=== PATIENT | female | born 1985 | race Caucasian/White ===

== ENCOUNTER 2016-07-19 05:50 | Emergency (ER) | payer OTHER ==
[~2016-07-19] VITALS: Ht 157.5 cm; Wt 63.5 kg
[2016-07-19 06:08] VITALS: BP 108/66
--- NOTE | 2016-07-19 06:16 | ED GI/GU/ABDOMINAL COMPLAINT ---
History of Present Illness General Chief Complaint: Nausea, Vomiting, Diarrhea Stated Complaint: VOMITING SINCE 2200 YEST Source: patient Exam Limitations: no limitations Vital Signs & Intake/Output Vital Signs & Intake/Output Vital Signs Date Time Temp Pulse Resp B/P Pulse O2 O2 Flow FiO2 Ox Delivery Rate 07/19 0611 97 Room Air 07/19 0608 97.8 106 18 108/66 98 Room Air Allergies Coded Allergies: No Known Allergies (07/19/16) Reconcile Medications No Known Home Medications Triage Note: PT FROM HOME C/O N/V/D SINCE 2199. PT STATES THAT SINCE LAST NIGHT AT 2200 SHE HAS HAD 10X EPISODES OF N/V/D. PT DENIES ANY NEW OR DIFFERENT FOODS. PT STATES " MY SON HAD THE STOMACH BUG LAST WEEK AND NOW I FEEL IT, MY SON DIDNT HAVE IT BAD" DR CHRISTENSEN IN FOR EVAL Triage Nurses Notes Reviewed? yes ? N Is pt currently ? No HPI: Patient presents for evaluation of sudden onset of nausea vomiting and diarrhea last night at about 2200 hrs. Patient states she's had perhaps as many as 10 episodes of nonbloody vomiting and diarrhea. Her son was ill with similar symptoms last week. She denies any recent travel or suspicious meals. Is also experiencing a moderate to severe cramping abdominal pain in the lower abdominal quadrants. Past History Travel History Traveled to [place] past 21 day No Medical History Any Pertinent Medical History? see below for history Surgical History Surgical History: non-contributory Psychosocial History What is your primary language Japanese Tobacco Use: Never used ETOH Use: denies use Illicit Drug Use: denies illicit drug use Family History Hx Contributory? No Review of Systems Review of Systems Constitutional: Reports: no symptoms. EENTM: Reports: no symptoms. Respiratory: Reports: no symptoms. Cardiovascular: Reports: no symptoms. GI: Reports: see HPI. Genitourinary: Reports: no symptoms. Musculoskeletal: Reports: no symptoms. Skin: Reports: no symptoms. Neurological/Psychological: Reports: no symptoms. Hematologic/Endocrine: Reports: no symptoms. Immunologic/Allergic: Reports: no symptoms. All Other Systems: Reviewed and Negative Physical Exam Physical Exam Gastrointestinal: see below Comments: Gen.: Well-nourished, well-developed, no acute respiratory distress. Head: Normocephalic, atraumatic. Eyes: Normal inspection bilaterally Ears: Normal inspection bilaterally Nose: Normal inspection Throat/mouth : Tacky mucosa Neck: Supple, full range of motion, no goiter Heart: Regular rate and rhythm, no murmurs rubs or gallops Lungs: Clear to auscultation bilaterally with normal air entry Chest: Nontender Back: Normal range of motion Abdomen: Soft, bilateral lower abdominal quadrant tenderness without rebound or guarding nondistended, normal bowel sounds Extremities: Normal range of motion grossly, equal radial pulses, no cyanosis clubbing or edema Neurologic: Cranial nerves grossly intact, speech is clear Skin: warm and dry Psychiatric: Calm, cooperative, no apparent delusions or hallucinations Core Measures ACS in differential dx? No Severe Sepsis Present: No Septic Shock Present: No Progress Differential Diagnosis: gastroenteritis, food poisoning, viral syndrome Plan of Care: Current Medications Sig/Zay Start time Last Medication Dose Stop Time Status Admin Ondansetron HCl 4 MG ONCE ONE 07/19 614 UNVr (Zofran) 07/19 615 Sodium Chloride 1,000 ML BOLUS ONE 07/19 614 UNVr (Normal Saline 0.9%) 07/19 07 Initial ED EKG: none Comments: 07/19/2016 6:42:15 AM RHETT is feeling better and feels capable of returning home at this point. Departure Departure Disposition: HOME OR SELF CARE Condition: Stable Clinical Impression Primary Impression: Gastroenteritis, acute Referrals: UNKNOWN (PCP/Family) Additional Instructions: Zofran as needed for nausea or vomiting. Clear liquid diet including Gatorade and Powerade and advance as tolerated. Follow-up with your primary care physician in one week if not improved. Return if any concerns or sudden worsening. Thank you for choosing the [facility] Emergency Department for your care. It was a pleasure to serve you today. Micah Christensen M.D. [facility] Departure Forms: Customer Survey General Discharge Information Prescriptions: Current Visit Scripts Ondansetron (Zofran Odt) 1 TAB SL Q6P PRN NAUSEA/VOMITING #10 TAB
[2016-07-19] MEDS ORDERED: ZOFRAN ODT4 M1 SL (06:43)
== END 2016-07-19 06:53 ==
LOC: ERH 05:50
DX: K52.9 Noninfective gastroenteritis and colitis, unspecified (principal)
CPT/HCPCS: 96374; J2405

== ENCOUNTER 2017-07-23 09:06 | Emergency (ER) | payer OTHER ==
[~2017-07-23] VITALS: Ht 157.5 cm; Wt 63.5 kg
[~2017-07-23 09:06] MED LIST: ZOFRAN ODT4 M1 SL
[2017-07-23 10:08] LABS: ABSOLUTE BASOPHIL COUNT 0 /CUMM (0.0-0.2); ABSOLUTE EOSINOPHIL COUNT 0.1 /CUMM (0.0-0.7); ABSOLUTE LYMPH COUNT 1.6 /CUMM (1.2-3.4); ABSOLUTE MONOCYTE COUNT 0.6 /CUMM (0.10-0.60); BASOPHIL % 0.6 % (0.0-2.0); EOSINOPHIL % 2.1 % (0-5); GRANULOCYTE % 63.4 % (42.2-75.2); HEMATOCRIT 39.1 % (37-47); MEAN CORPUSCULAR HGB 31.1 PG (27.0-31.0); MEAN CORPUSCULAR HGB CONC 35.2 G/DL (33.0-37.0); MEAN CORPUSCULAR VOLUME 88.4 FL (81.0-99.0); MEAN PLATELET VOLUME 8.4 FL (7.4-10.4); PLATELET COUNT 294 /CUMM (130-400); RBC DISTRIBUTION WIDTH 12.2 % (11.5-14.5); RED BLOOD CELL CT 4.42 /CUMM (4.20-5.40); WHITE BLOOD CELL COUNT 6.3 /CUMM (4.8-10.8)
--- NOTE | 2017-07-23 11:21 | ED GI/GU/ABDOMINAL COMPLAINT ---
History of Present Illness General Chief Complaint: General Adult Stated Complaint: 5 WEEKS PREG, SPOTTING Source: patient Exam Limitations: no limitations Vital Signs & Intake/Output Vital Signs & Intake/Output ED Intake and Output 07/24 0000 07/23 1200 Intake Total 0 Output Total Balance 0 Intake, Oral 0 Patient 140 lb Weight Weight Reported by Patient Measurement Method Allergies Coded Allergies: No Known Allergies (07/19/16) Reconcile Medications Vit No.130/Iron/FA ( Tablet) 27 MG IRON-800 MCG TABLET 1 TAB PO DAILY (Reported) Triage Note: PT STATES SHE IS 5 WEEKS AND STARTED SPOTTING TODAY AFTER SEX. STATES BROWNISH. Triage Nurses Notes Reviewed? yes ? Y Is pt currently ? No Onset: Gradual Duration: hour(s): Timing: single episode today Quality/Severity: mild HPI: 32yo female 5 weeks presents to ED complaining of painless brown vaginal spotting beginning this morning. Patient states that she had vaginal sexual activity this morning. Several hours later she noticed brown discharge on her underwear. Amount of discharge was mild, no heavy bleeding. Patient has no abdominal pain or cramping. Patient has her first appointment with her OB/ [facility]IMNEY REPAIRER in 2 weeks. Her last menstrual period was 06/18/17. Patient reports mild nausea for the past few days without vomiting, she has been tolerating PO. Patient denies back pain, dysuria, urinary frequency, vomiting, diarrhea, fevers , chills. (Nelly Juan) Past History Travel History Traveled to [place] past 21 day No Medical History Any Pertinent Medical History? none Surgical History Surgical History: non-contributory Psychosocial History What is your primary language Belizean Tobacco Use: Never used ETOH Use: denies use Illicit Drug Use: denies illicit drug use Family History Hx Contributory? No (Nelly Juan) Review of Systems Review of Systems Constitutional: Reports: no symptoms. EENTM: Reports: no symptoms. Respiratory: Reports: no symptoms. Cardiovascular: Reports: no symptoms. GI: Reports: see HPI. Genitourinary: Reports: see HPI. Musculoskeletal: Reports: no symptoms. Skin: Reports: no symptoms. Neurological/Psychological: Reports: no symptoms. Hematologic/Endocrine: Reports: no symptoms. Immunologic/Allergic: Reports: no symptoms. All Other Systems: Reviewed and Negative (Nelly Juan) Physical Exam Physical Exam General Appearance: well developed/nourished, no apparent distress, alert, awake Head: atraumatic, normal appearance Eyes: Bilateral: normal appearance. Ears, Nose, Throat, Mouth: hearing grossly normal, moist mucous membrane Neck: normal inspection, supple, full range of motion Respiratory: normal breath sounds, no respiratory distress, lungs clear Cardiovascular: regular rate/rhythm Gastrointestinal: normal bowel sounds, soft, non-tender, no organomegaly Back: normal inspection, normal range of motion Extremities: normal range of motion Neurologic/Psych: awake, alert, oriented x 3 Skin: intact, normal color, warm/dry Core Measures ACS in differential dx? No Sepsis Present: No Sepsis Focused Exam Completed? No (Veronica POSADA,Nelly Larson) Progress Differential Diagnosis: ectopic , intrauterine , PID/ cervicitis, threatened AB, UTI/pyelo Plan of Care: Orders Procedure Date/time Status URINALYSIS 07/23 1120 Complete HUMAN BETA HCG TITRE 07/23 0839 Complete COMPREHENSIVE METABOLIC PANEL 07/23 938 Complete CBC WITHOUT DIFFERENTIAL 07/23 938 Complete TYPE & SCREEN (NOT X-MATCH) 07/23 938 Complete Laboratory Tests 07/23/17 1000: Anion Gap 10, Estimated GFR > 60, BUN/Creatinine Ratio 17.1, Glucose 89, Calcium 9.6, Total Bilirubin 0.5, AST 19, ALT 31, Alkaline Phosphatase 51, Total Protein 7.1, Albumin 4.2, Globulin 2.9, Albumin/Globulin Ratio 1.4, Beta HCG, Quant 99310.0, CBC w Diff NO MAN DIFF REQ, RBC 4.42, MCV 88.4, MCH 31.1 H, MCHC 35.2, RDW 12.2, MPV 8.4, Gran % 63.4, Lymphocytes % 25.0, Monocytes % 8.9, Eosinophils % 2.1, Basophils % 0.6, Absolute Granulocytes 4.0, Absolute Lymphocytes 1.6, Absolute Monocytes 0.6, Absolute Eosinophils 0.1, Absolute Basophils 0, Urine Color YEL, Urine Clarity CLEAR, Urine pH 6.0, Ur Specific [place] <= 1.005, Urine Protein NEG, Urine Ketones NEG, Urine Nitrite NEG, Urine Bilirubin NEG, Urine Urobilinogen 0.2, Ur Leukocyte Esterase NEG, Ur Microscopic EXAM NOT REQUIRED, Urine Hemoglobin NEG, Urine Glucose NEG Patient's hCG titer is in normal range relating to her dates. She has no abdominal pain or abdominal tenderness on physical exam. Patient has very early , would not likely see on transvaginal ultrasound given her early dates. Without abdominal tenderness or pain there is a low suspicion for ectopic . For this reason patient follow up for repeat hCG titer in two days, she was given outpatient lab slip. She was given strict return precautions for abdominal pain or worsening symptoms. Otherwise she will follow -up with [facility]. Patient in no acute distress, stable vital signs. The patient agrees with the plan of care. The patient was discussed with Dr. Brooks who agrees with this plan. Initial ED EKG: none (Nelly Juan) Departure Departure Disposition: HOME OR SELF CARE Condition: Stable Clinical Impression Primary Impression: Spotting affecting Referrals: Unknown (PCP/Family) Additional Instructions: As discussed, obtain repeat lab in 2 days for further assessment, call your OB/ CHIMNEY REPAIRER to inform them of today's emergency department visit. With any worsening symptoms such as heavy bleeding, abdominal pain please Return to the emergency department. Please note that there might be incidental findings in your evaluation that are unrelated to the current emergency department visit. Please notify your primary care doctor about this emergency department visit in order to obtain and review all of the testing performed so that these incidental findings can be monitored as needed. If you had an x-ray performed, please understand that some fractures may not be seen on the initial set of x-rays. If your symptoms persist you might need a repeat set of x-rays to check for such a fracture. If you had a laceration evaluated, please understand that foreign bodies such as glass or wood may not be visible to the naked eye or on plain x-rays. If the wound becomes red, swollen, increasingly more painful or if there is any drainage from the wound, please have it reevaluated by a physician for the possibility of a retained foreign body. If you're unable to follow up as outlined in the discharge instructions please return to the emergency department. Thank you for choosing the [facility] Emergency Department for your care. It was a pleasure to serve you today. Departure Forms: Customer Survey General Discharge Information (Nelly Juan) PA/ALMOND HULLER Co-Sign Statement Statement: ED Attending supervision documentation- x I saw and evaluated the patient. I have also reviewed all the pertinent lab results and diagnostic results. I agree with the findings and the plan of care as documented in the PA's/ALMOND HULLER's documentation. [] I have reviewed the ED Record and agree with the PA's/ALMOND HULLER's documentation. [] Additions or exceptions (if any) to the PAs/ALMOND HULLER's note and plan are summarized below: [] (Todd MURILLO,Bassam)
[2017-07-23] MEDS ORDERED: PRENATAL TABLE1 EAC2 PO (11:26)
[2017-07-23 11:30] VITALS: BP 123/67
== END 2017-07-23 11:58 ==
LOC: ERH 09:06
PROVIDERS: Physician Assistant
DX: O26.91 Pregnancy related conditions, unspecified, first trimester (principal); N89.8 Other specified noninflammatory disorders of vagina; Z3A.01 Less than 8 weeks gestation of pregnancy
CPT/HCPCS: 81003